=== PATIENT | female | born 1970 | race Caucasian/White ===

== ENCOUNTER 2023-02-12 19:46 | Emergency (ER) | payer OTHER ==
[~2023-02-12] VITALS: Ht 162.6 cm; Wt 53.5 kg
[2023-02-12 21:31] VITALS: BP 158/97; TEMP 98.5
--- NOTE | 2023-02-12 21:36 | NUR ---
BIBSELF FROM HOME FOR ATB RX FOR REOCCURING INVASIVE BACTERIAL PANSINUSITIS INFECTION S/S OF CONGESTION, NASAL PRESSURE
[2023-02-12] MEDS ORDERED: CIPR500T5 PO (22:12)
[2023-02-12 22:47] VITALS: O2SAT 85
== END 2023-02-12 22:47 | disposition home or self-care (01) ==
LOC: ER 19:53
DX: J32.4 Chronic pansinusitis (principal); Z60.2 Problems related to living alone

== ENCOUNTER 2023-03-07 12:45 | Emergency (ER) | payer OTHER ==
[~2023-03-07] VITALS: Ht 162.6 cm; Wt 81.6 kg
[~2023-03-07 12:45] MED LIST: CIPR500T5 PO
[2023-03-07 13:16] VITALS: BP 149/91; TEMP 98.5; O2SAT 100
[2023-03-07] MEDS ORDERED: DOXY100T2 PO (15:37)
== END 2023-03-07 15:59 | disposition home or self-care (01) ==
LOC: ER 12:52
DX: Z60.2 Problems related to living alone (principal); J32.9 Chronic sinusitis, unspecified

== ENCOUNTER 2024-03-07 18:10 | Emergency (ER) | payer OTHER ==
[~2024-03-07] VITALS: Ht 162.6 cm; Wt 54.4 kg
[~2024-03-07 18:10] MED LIST changes: +DOXY100T2 PO
[2024-03-07] MEDS ORDERED: FLUT16SP16 BNOSTRILS (20:38)
[2024-03-07] MEDS ORDERED: PSEU120T83 PO (20:38)
[2024-03-07] MEDS ORDERED: LEVO750T46 PO (20:38)
[2024-03-07] MEDS ORDERED: SULF1TAB48 PO (20:38)
[2024-03-07] MEDS ORDERED: KETO10TA2 PO (20:38)
[2024-03-07 20:56] VITALS: BP 147/97; TEMP 98.6; O2SAT 100
== END 2024-03-07 20:56 | disposition home or self-care (01) ==
LOC: ER 18:10
DX: J32.8 Other chronic sinusitis (principal); B96.89 Other specified bacterial agents as the cause of diseases classified elsewhere; R51.9 Headache, unspecified; Z60.2 Problems related to living alone

== ENCOUNTER 2024-10-17 23:28 | Emergency (ER) | payer MEDICAID, OTHER ==
[~2024-10-17] VITALS: Ht 162.6 cm; Wt 54.4 kg
[~2024-10-17 23:28] MED LIST changes: +FLUT16SP16 BNOSTRILS; +KETO10TA2 PO; +LEVO750T46 PO; +PSEU120T83 PO; +SULF1TAB48 PO
[2024-10-18] MEDS ORDERED: TDAP [DIPH/PERTUSSIS/TET] 0.5 ML VIAL IM ONE (00:29)
[2024-10-18] MEDS: TDAP [DIPH/PERTUSSIS/TET] 0.5 ML VIAL IM ONE (00:30)
[2024-10-18] MEDS ORDERED: LIDOCAINE 1%-EPI 1:100,000 20 ML VIAL ONE (00:59)
[2024-10-18 02:12] VITALS: BP 120/70; TEMP 98; O2SAT 99
== END 2024-10-18 02:13 | disposition home or self-care (01) ==
LOC: ER 23:44
DX: S01.01XA Laceration without foreign body of scalp, initial encounter (principal); R11.0 Nausea; R51.9 Headache, unspecified; Z60.2 Problems related to living alone; W18.39XA Other fall on same level, initial encounter; Y93.89 Activity, other specified; Y92.89 Other specified places as the place of occurrence of the external cause; Y99.8 Other external cause status
CPT/HCPCS: 12002; 70450; 72125; 90471; 90715; 99285; J3490

== ENCOUNTER 2025-07-20 13:09 | Emergency (ER) | payer MEDICAID ==
[~2025-07-20] VITALS: Ht 162.6 cm; Wt 53.5 kg
[2025-07-20 13:40] VITALS: TEMP 98.1
[2025-07-20 16:07] LABS: PLATELET COUNT (AUTO) 204 K/uL (150-450); RED BLOOD CELL COUNT(AUTO) 4.67 MIL/uL (4.0-5.2); RED CELL DISTRIBUTION WIDTH 13.6 % (11.5-15.0); WHITE BLOOD COUNT (AUTO) 4.6 K/uL (4.3-11.0)
[2025-07-20 16:12] LABS: CALCIUM, SERUM 8.6 mg/dL (8.5-10.1); CREATININE 0.6 mg/dL (0.6-1.3); SODIUM SERUM 141.0 mmol/L (136-145); UREA NITROGEN, BLOOD 21.0 mg/dL (7-18)
[2025-07-20] MEDS ORDERED: IBUP-1490 PO (17:07)
[2025-07-20] MEDS: CEFEPIME 1 GM in IV D5W 50 ML IV SCH (17:10)
[2025-07-20 17:57] VITALS: BP 125/73; O2SAT 100
== END 2025-07-20 17:50 | disposition home or self-care (01) ==
LOC: ER 13:51
DX: J32.4 Chronic pansinusitis (principal)
CPT/HCPCS: 99284; 96365; 85025; 80048; 36415; J7060; J0692